=== PATIENT | female | born 1975 | race American Indian/Alaskan Native ===

== ENCOUNTER 2021-02-02 09:19 | Emergency (ER) | payer BC ==
[2021-02-02] MEDS ORDERED: LORazepam 2 MG/ML VIAL IM ONE (09:23)
[2021-02-02] MEDS ORDERED: levETIRAcetam 1000 MG/NS 0.75% 1,000 MG/100 ML BAG IV NR (10:30)
[2021-02-02 11:09] LABS: BUN/Creatinine Ratio 13; Blood Urea Nitrogen 10 mg/dL (7-17); Calcium 9.9 mg/dL (8.4-10.2); Hemolysis Index 9
[2021-02-02 11:42] LABS: Basophils % (Auto) 0.5 % (0.0-1.8); Eosinophils # (Auto) 0.1 K/mm3 (0.0-0.4); Eosinophils % (Auto) 0.9 % (0.0-4.3); Lymphocytes # (Auto) 1.5 K/mm3 (1.2-5.4); Lymphocytes % (Auto) 24.9 % (13.4-35.0); Mean Corpuscular HGB Conc 33 % (30-34); Mean Corpuscular Volume 101 fl (79-97); Monocytes # (Auto) 0.4 K/mm3 (0.0-0.8); Platelet Count 269 K/mm3 (140-440); Red Blood Count 3.87 M/mm3 (3.65-5.03); Red Cell Distribution Width 14.2 % (13.2-15.2)
[2021-02-02] MEDS ORDERED: DIVALPROEX ER 500 MG TAB PO ONE (11:45)
--- NOTE | 2021-02-02 13:39 | Emergency Department Report ---
ED Seizure HPI - General Chief Complaint: Seizure Stated Complaint: SEIZURE Time Seen by Provider: 02/02/21 09:23 Source: EMS Mode of arrival: Stretcher Limitations: No Limitations - History of Present Illness Initial Comments: Patient is a 45-year-old F Maltese female who is presenting status post this seizure. Patient does have a history of seizures and takes Depakote and Keppra. States has been compliant. Last seizure was over a year ago. Patient had potentially several seizures this morning while at work. Paramedics were unable to establish IV and gave the patient intranasal Versed prior to arrival. Once the patient became more lucid she is denying any fevers chills neck stiffness cough cold or congestion. - Related Data Allergies Allergy/AdvReac Type Severity Reaction Status Date / Time aspirin Allergy Unknown Verified 02/02/21 10:09 cephalexin [From Keflex] Allergy Unknown Verified 02/02/21 10:09 escitalopram [From Lexapro] Allergy Unknown Verified 02/02/21 10:09 ibuprofen Allergy Unknown Verified 02/02/21 10:09 iodine Allergy Unknown Verified 02/02/21 10:09 Latex, Natural Rubber Allergy Unknown Verified 02/02/21 10:09 nitrofurantoin Allergy Unknown Verified 02/02/21 10:09 [From Macrobid] Penicillins Allergy Unknown Verified 02/02/21 10:09 ED Review of Systems ROS: Stated complaint: SEIZURE Other details as noted in HPI Comment: All other systems reviewed and negative ED Past Medical Hx - Past Medical History Previous Medical History?: Yes Hx Seizures: Yes - Surgical History Past Surgical History?: No - Social History Smoking Status: Never Smoker Substance Use Type: None ED Physical Exam - General Limitations: No Limitations General appearance: postictal - Head Head exam: Present: atraumatic, normocephalic - Eye Eye exam: Present: normal appearance, PERRL, EOMI - ENT ENT exam: Present: mucous membranes moist - Neck Neck exam: Present: normal inspection - Respiratory Respiratory exam: Present: normal lung sounds bilaterally. Absent: respiratory distress, wheezes, rales, rhonchi - Cardiovascular Cardiovascular Exam: Present: regular rate, normal rhythm, normal heart sounds. Absent: systolic murmur, diastolic murmur, rubs, gallop - GI/Abdominal GI/Abdominal exam: Present: soft, normal bowel sounds. Absent: distended, tenderness, guarding, rebound - Extremities Exam Extremities exam: Present: normal inspection - Back Exam Back exam: Present: normal inspection - Neurological Exam Neurological exam: Present: altered - Psychiatric Psychiatric exam: Present: normal affect, normal mood - Skin Skin exam: Present: warm, dry, intact, normal color. Absent: rash ED Course Vital Signs 02/02/21 02/02/21 10:09 13:46 Temperature 99 F Pulse Rate 74 74 Respiratory 16 16 Rate Blood Pressure 133/79 Blood Pressure 119/75 [Left] O2 Sat by Pulse 100 96 Oximetry - Reevaluation(s) Reevaluation #1: 02/02/21 1100 On arrival the patient appeared to have another tonic-clonic seizure. Given IM Ativan. Will monitor patient Reevaluation #2: 02/02/21 13:38 Patient still states she is somewhat unstable while walking. States she is very sleepy. Mild slurred speech but she states she has had previously with seizures. States she feels as though her tongue is of heavy. Did not see any lacerations to the tongue. I will continue to monitor the patient until she is stable and ready for discharge Reevaluation #3: 02/02/21 13:54 At this time the patient is completely lucid no longer exhibiting any signs of effects from the benzodiazepines that she had earlier. Patient was gotten out of the bed and showed a significant limp and weakness to the right lower extremity. Patient also has a slight right-sided facial droop. Mild slurred speech. Initially the slurred speech was attributed to the benzodiazepines however the patient currently states that she feels completely lucid and awake and feels as though there is some difficulty with speaking. At this time we will initiate a code stroke. 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 CT has been ordered and will be performed at this time. Reevaluation #4: 02/02/21 14:50 Patient is evaluated by her neurologist and she states she does not believe that the symptoms the patient exhibiting were associated with acute CVA. Head CT shows no acute process. Patient will be discharged home with follow-up with her neurologist. Patient actually had an appointment to see her neurologist today but missed the appointment because she was being evaluated here in the emergency department. - Consultations Consultation #1: 02/02/21 14:42 [facility] Blank Note Documentation Patient Name: ANNA CORREIA Date of : [birth year] Patient Status: Emergency Emergency Provider: MARIO KEMP Date: 02/02/21 14:32 Initialization Date: 02/02/21 14:32 Blank Doc - Documentation Documentation: [facility] Consult Note # Demographics Consult Type: Acute Stroke Level 2 (4.5-24 hrs) Patient Location: Emergency Room First Name: Anna Last Name: Oral Date of : 1975 Age: 45 Gender: Female Facility: [facility] Time of Initial Page ( Time): 02/02/2021, 13:55 Time of Return Call ( Time): 02/02/2021, 13:56 # HPI History: pt with h/o epilepsy present with multiple seizures. has been treated with benzos. improving clinically, when trying to ambulating having some right sided weakness that is noted. has had something similar after seizures in the past # Scores Time of exam and NIHSS ( Time): 02/02/2021, 14:06 Level of Consciousness 1a: [0] = Alert; keenly responsive LOC Questions 1b: [0] = Answers both questions correctly LOC Commands 1c: [0] = Performs both tasks correctly Best Gaze 2: [0] = Normal Visual 3: [0] = No visual loss Facial Palsy 4: [0] = Normal symmetrical movements Motor Arm Left 5a: [0] = No drift Motor Arm Right 5b: [0] = No drift Motor Leg Left 6a: [0] = No drift Motor Leg Right 6b: [0] = No drift Limb Ataxia 7: [0] = Absent Sensory 8: [0] = Normal Best Language 9: [0] = No aphasia Dysarthria 10: [0] = Normal Extinction and Inattention 11: [0] = No abnormality NIHSS Total: 0 # Exam Cranial Nerves: pt intermittently pulls her face to the left # PMH-FH-SH Past Medical History: seizure Medications: Keppra 1500mg BID, VPA 250mg BID # Plan Other: seizure precautions I have discussed my recommendations with the referring provider Additional Recommendations: continue home AEDs, she can follow-up with neurologist to discuss if adjustment is needed supportive care. no further neuro eval needed after CT head # Logistics Telemedicine: Interactive 2 way audio and visual telecommunication technology was utilized during this visit ED Medical Decision Making - Lab Data Result diagrams: 02/02/21 10:04 02/02/21 10:04 Lab Results 02/02/21 02/02/21 02/02/21 Range/Units 10:04 10:04 10:04 WBC 6.1 (4.5-11.0) K/mm3 RBC 3.87 (3.65-5.03) M/mm3 Hgb 13.0 (10.1-14.3) gm/dl Hct 39.0 (30.3-42.9) % MCV 101 H (79-97) fl MCH 34 H (28-32) pg MCHC 33 (30-34) % RDW 14.2 (13.2-15.2) % Plt Count 269 (140-440) K/mm3 Lymph % (Auto) 24.9 (13.4-35.0) % [place] % (Auto) 7.0 (0.0-7.3) % Eos % (Auto) 0.9 (0.0-4.3) % Baso % (Auto) 0.5 (0.0-1.8) % Lymph # (Auto) 1.5 (1.2-5.4) K/mm3 [place] # (Auto) 0.4 (0.0-0.8) K/mm3 Eos # (Auto) 0.1 (0.0-0.4) K/mm3 Baso # (Auto) 0.0 (0.0-0.1) K/mm3 Seg Neutrophils % 66.7 (40.0-70.0) % Seg Neutrophils # 4.1 (1.8-7.7) K/mm3 Sodium 140 (137-145) mmol/L Potassium 4.3 (3.6-5.0) mmol/L Chloride 105.6 (98-107) mmol/L Carbon Dioxide 24 (22-30) mmol/L Anion Gap 15 mmol/L BUN 10 (7-17) mg/dL Creatinine 0.8 (0.6-1.2) mg/dL Estimated GFR > 60 ml/min BUN/Creatinine Ratio 13 % Glucose 107 H (65-100) mg/dL Calcium 9.9 (8.4-10.2) mg/dL Magnesium (1.7-2.3) mg/dL Plasma/Serum Alcohol < 0.01 (0-0.07) % 02/02/21 Range/Units 10:04 WBC (4.5-11.0) K/mm3 RBC (3.65-5.03) M/mm3 Hgb (10.1-14.3) gm/dl Hct (30.3-42.9) % MCV (79-97) fl MCH (28-32) pg MCHC (30-34) % RDW (13.2-15.2) % Plt Count (140-440) K/mm3 Lymph % (Auto) (13.4-35.0) % [place] % (Auto) (0.0-7.3) % Eos % (Auto) (0.0-4.3) % Baso % (Auto) (0.0-1.8) % Lymph # (Auto) (1.2-5.4) K/mm3 [place] # (Auto) (0.0-0.8) K/mm3 Eos # (Auto) (0.0-0.4) K/mm3 Baso # (Auto) (0.0-0.1) K/mm3 Seg Neutrophils % (40.0-70.0) % Seg Neutrophils # (1.8-7.7) K/mm3 Sodium (137-145) mmol/L Potassium (3.6-5.0) mmol/L Chloride (98-107) mmol/L Carbon Dioxide (22-30) mmol/L Anion Gap mmol/L BUN (7-17) mg/dL Creatinine (0.6-1.2) mg/dL Estimated GFR ml/min BUN/Creatinine Ratio % Glucose (65-100) mg/dL Calcium (8.4-10.2) mg/dL Magnesium 2.10 (1.7-2.3) mg/dL Plasma/Serum Alcohol (0-0.07) % - Radiology Data Radiology results: image reviewed Critical care attestation.: If time is entered above; I have spent that time in minutes in the direct care of this critically ill patient, excluding procedure time. ED Disposition Clinical Impression: Seizure, Darian's paralysis (postepileptic) Disposition: 01 HOME / SELF CARE / HOMELESS Is pt being admited?: No Does the pt Need Aspirin: No Condition: Stable Instructions: Epilepsy, [id number] Referrals: PRIMARY CARE, [Primary Care Provider] - 3-5 Days Time of Disposition: 14:52
[2021-02-02 13:47] VITALS: BP 119/75
--- NOTE | 2021-02-02 14:32 | Emergency Department Report ---
Blank Doc - Documentation Documentation: [facility] Consult Note # Demographics Consult Type: Acute Stroke Level 2 (4.5-24 hrs) Patient Location: Emergency Room First Name: Anna Last Name: Oral Date of : 1975 Age: 45 Gender: Female Facility: [facility] Time of Initial Page ( Time): 02/02/2021, 13:55 Time of Return Call ( Time): 02/02/2021, 13:56 # HPI History: pt with h/o epilepsy present with multiple seizures. has been treated with benzos. improving clinically, when trying to ambulating having some right sided weakness that is noted. has had something similar after seizures in the past # Scores Time of exam and NIHSS ( Time): 02/02/2021, 14:06 Level of Consciousness 1a: [0] = Alert; keenly responsive LOC Questions 1b: [0] = Answers both questions correctly LOC Commands 1c: [0] = Performs both tasks correctly Best Gaze 2: [0] = Normal Visual 3: [0] = No visual loss Facial Palsy 4: [0] = Normal symmetrical movements Motor Arm Left 5a: [0] = No drift Motor Arm Right 5b: [0] = No drift Motor Leg Left 6a: [0] = No drift Motor Leg Right 6b: [0] = No drift Limb Ataxia 7: [0] = Absent Sensory 8: [0] = Normal Best Language 9: [0] = No aphasia Dysarthria 10: [0] = Normal Extinction and Inattention 11: [0] = No abnormality NIHSS Total: 0 # Exam Cranial Nerves: pt intermittently pulls her face to the left # PMH-FH-SH Past Medical History: seizure Medications: Keppra 1500mg BID, VPA 250mg BID # Plan Other: seizure precautions I have discussed my recommendations with the referring provider Additional Recommendations: continue home AEDs, she can follow-up with neurologist to discuss if adjustment is needed supportive care. no further neuro eval needed after CT head # Logistics Telemedicine: Interactive 2 way audio and visual telecommunication technology was utilized during this visit
--- NOTE | 2021-02-02 15:00 | Cat Scan Report ---
CT HEAD WITHOUT CONTRAST INDICATION / CLINICAL INFORMATION: CODE STROKE CALL REPORT [phone] Stroke symptoms LT sided weakness . TECHNIQUE: All CT scans at this location are performed using CT dose reduction for ALARA by means of automated e xposure control. COMPARISON: None available. FINDINGS: HEMORRHAGE: No evidence of intracranial hemorrhage or extra-axial fluid collection. EXTRA-AXIAL SPACES: Cortical sulci, sylvian fissures and basilar cisterns have an unremarkable appear ance. VENTRICULAR SYSTEM: The third and lateral ventricles are of normal size and configuration. CEREBRAL PARENCHYMA: No areas of abnormal brain parenchymal attenuation are identified. There is no i ndication of recent infarction. MIDLINE SHIFT OR HERNIATION: There is no mass effect. CEREBELLUM / BRAINSTEM: Brainstem and cerebellum have an unremarkable appearance. MIDLINE STRUCTURES:No abnormalities of the pituitary gland or pineal region are identified. INTRACRANIAL VESSELS:No abnormalities are identified on this noncontrast head CT. ORBITS: visualized portions of the orbits have an unremarkable appearance. SOFT TISSUES of HEAD: No significant abnormality. CALVARIUM: Evaluation of bone windows reveals no abnormalities. PARANASAL SINUSES / MASTOID AIR CELLS: Visualized portions of the paranasal sinuses are free from inf lammatory mucosal disease. Mastoid air cells are normally pneumatized. ADDITIONAL FINDINGS: None. IMPRESSION: 1. No acute intracranial abnormality. CODE STROKE: Time of Communication (NEURORADIOLOGIST/CDT): 1355 Central standard time Licensed Practitioner Receiving Report: Dr[facility] Christopher [facility] of [facility]. Signer Name: Sharif Soto MD Signed: 02/02/2021 2:56 PM Workstation Name: [id number]
[2021-02-02 15:27] LABS: INR 0.87 (0.87-1.13)
[2021-02-02 15:28] LABS: Partial Thromboplastin Time 25.1 Sec. (24.2-36.6); Thrombin Time 17.2 Sec. (15.1-19.6)
== END 2021-02-02 15:45 | disposition home or self-care (01) ==
LOC: ED 09:19
DX: R56.9 Unspecified convulsions (principal); G83.84 Todd's paralysis (postepileptic); Z88.0 Allergy status to penicillin; Z88.1 Allergy status to other antibiotic agents; Z88.5 Allergy status to narcotic agent; Z88.6 Allergy status to analgesic agent; Z88.8 Allergy status to other drugs, medicaments and biological substances; Z91.041 Radiographic dye allergy status; Z91.040 Latex allergy status
CPT/HCPCS: 36415; 70450; 80048; 83735; 85025; 85610; 85670; 85730; 96372; 96374; 99284; J1953; J2060; 80320; G0480

== ENCOUNTER 2022-02-16 14:15 | Emergency (ER) | payer BC ==
[2022-02-16] MEDS ORDERED: levETIRAcetam 1000 MG/NS 0.75% 1,000 MG/100 ML BAG IV ONE (14:48)
--- NOTE | 2022-02-16 16:25 | Emergency Department Report ---
ED General Adult HPI - General Chief complaint: Seizure Stated complaint: SEIZURE Time Seen by Provider: 02/16/22 14:48 Source: EMS Mode of arrival: Stretcher Limitations: Altered Mental Status - History of Present Illness Initial comments: Patient presents to the emergency department chief complaint of seizure activity. Patient was given 4 mg Ativan in route and is no longer having seizure activity. Patient states she has a history of seizures and takes Keppra daily for seizures. Patient denies any chest pain, shortness of breath, headache. Patient's thinks her seizure today was caused by fire alarms and flashing lights that were going off her location prior to her seizure. -: Sudden Severity scale (0 -10): 0 Consistency: now resolved Improves with: none Worsens with: none Associated Symptoms: denies other symptoms Treatments Prior to Arrival: none - Related Data Allergies Allergy/AdvReac Type Severity Reaction Status Date / Time aspirin Allergy Unknown Verified 02/16/22 14:27 cephalexin [From Keflex] Allergy Unknown Verified 02/16/22 14:27 escitalopram [From Lexapro] Allergy Unknown Verified 02/16/22 14:27 ibuprofen Allergy Unknown Verified 02/16/22 14:27 iodine Allergy Unknown Verified 02/16/22 14:27 Latex, Natural Rubber Allergy Unknown Verified 02/16/22 14:27 nitrofurantoin Allergy Unknown Verified 02/16/22 14:27 [From Macrobid] Penicillins Allergy Unknown Verified 02/16/22 14:27 ED Review of Systems ROS: Stated complaint: SEIZURE Other details as noted in HPI Comment: All other systems reviewed and negative Constitutional: denies: chills, fever Eyes: denies: eye pain, eye discharge, vision change ENT: denies: ear pain, throat pain Respiratory: denies: cough, shortness of breath, wheezing Cardiovascular: denies: chest pain, palpitations Endocrine: no symptoms reported Gastrointestinal: denies: abdominal pain, nausea, diarrhea Genitourinary: denies: urgency, dysuria, discharge Musculoskeletal: denies: back pain, joint swelling, arthralgia Skin: denies: rash, lesions Neurological: denies: headache, weakness, paresthesias Psychiatric: denies: anxiety, depression Hematological/Lymphatic: denies: easy bleeding, easy bruising ED Past Medical Hx - Past Medical History Hx Seizures: Yes - Social History Smoking Status: Never Smoker Substance Use Type: None ED Physical Exam - General Limitations: Altered Mental Status General appearance: alert, in no apparent distress - Head Head exam: Present: atraumatic, normocephalic - Eye Eye exam: Present: normal appearance, PERRL, EOMI - ENT ENT exam: Present: mucous membranes moist - Neck Neck exam: Present: normal inspection - Respiratory Respiratory exam: Present: normal lung sounds bilaterally. Absent: respiratory distress - Cardiovascular Cardiovascular Exam: Present: regular rate, normal rhythm. Absent: systolic murmur, diastolic murmur, rubs, gallop - GI/Abdominal GI/Abdominal exam: Present: soft, normal bowel sounds. Absent: distended, tenderness - Extremities Exam Extremities exam: Present: normal inspection - Back Exam Back exam: Present: normal inspection - Neurological Exam Neurological exam: Present: alert, oriented X3, CN II-XII intact. Absent: motor sensory deficit - Psychiatric Psychiatric exam: Present: normal affect, normal mood - Skin Skin exam: Present: warm, dry, intact, normal color. Absent: rash ED Course Vital Signs 02/16/22 02/16/22 14:15 15:47 Temperature 97.2 F L 98.5 F Pulse Rate 80 87 Respiratory 16 13 Rate Blood Pressure 108/71 Blood Pressure 113/87 [Left] O2 Sat by Pulse 100 97 Oximetry ED Medical Decision Making - Medical Decision Making Patient given IV Keppra Critical care attestation.: If time is entered above; I have spent that time in minutes in the direct care of this critically ill patient, excluding procedure time. ED Disposition Clinical Impression: Seizure Disposition: 01 HOME / SELF CARE / HOMELESS Is pt being admited?: No Does the pt Need Aspirin: No Condition: Stable Instructions: Seizure, Adult Additional Instructions: Return if worse Referrals: AMEENA SNOWDEN MD [Staff Physician] - 3-5 Days Time of Disposition: 16:25
[2022-02-16 16:56] VITALS: BP 114/75
== END 2022-02-16 18:13 | disposition home or self-care (01) ==
LOC: ED 14:15
DX: R56.9 Unspecified convulsions (principal)
CPT/HCPCS: 96374; 99283; J1953